=== PATIENT | male | born 1975 | race Caucasian/White ===

== ENCOUNTER 2018-12-05 11:00 | Outpatient (CLI) | payer OTHER ==
--- NOTE | 2018-12-05 12:42 | RAD ---
CHEST TWO VIEWS: History: Shortness of breath for the past few days. Comparison: 01-30-13 FINDINGS: Normal cardiac silhouette. The pulmonary vessels and hilum are normal. Costophrenic angles are clear. No mass. No consolidation. No pneumothorax or osseous abnormalities. IMPRESSION: No acute cardiopulmonary process. POS: [facility]
== END 2018-12-05 11:01 | disposition home or self-care (01) ==
LOC: NAV RAD 11:00
PROVIDERS: ATTEND Internal Medicine
DX: R06.02 Shortness of breath (principal)
CPT/HCPCS: 71046